=== PATIENT | female | born 1995 | race Caucasian/White ===

== ENCOUNTER 2021-12-04 13:56 | Emergency (ER) | payer BC ==
[2021-12-04] MEDS ORDERED: Lactated Ringers 1,000 ML IV STA (14:05)
[2021-12-04] MEDS ORDERED: LORazepam 2 MG/ML SDV IVPUSH STA (14:05)
[2021-12-04 15:02] LABS: ACETAMINOPHEN <2.0 ug/mL; BLOOD UREA NITROGEN,BUN 6 mg/dL (7.0-18.0); CARBON DIOXIDE,CO2 17.7 mmol/L (21.0-32.0); CHLORIDE,CL 88 mmol/L (98-107); GLUCOSE RANDOM 164 mg/dL (74-106); POTASSIUM,K 3.1 mmol/L (3.5-5.1); SODIUM,NA 125 mmol/L (136-145)
[2021-12-04 15:09] LABS: ESTIMATED GFR 103 mL/min (>60)
[2021-12-04] MEDS ORDERED: Sodium Chloride 0.9% 1,000 ML IV SCH (15:15)
[2021-12-04] MEDS ORDERED: Magnesium Sulfate/Water 2 GM in Premix Bag 1 BAG IV ONE (15:16)
[2021-12-04] MEDS ORDERED: Potassium Chloride 10% 20 MEQ/15 ML Soln 30 ML UD Cup PO ONE (15:29)
== END 2021-12-04 16:13 | disposition critical access hospital (66) ==
LOC: MW.ED 13:56
DX: E87.1 Hypo-osmolality and hyponatremia (principal); E87.6 Hypokalemia; E83.42 Hypomagnesemia; E87.8 Other disorders of electrolyte and fluid balance, not elsewhere classified; Z20.822 Contact with and (suspected) exposure to COVID-19
CPT/HCPCS: 36415; 71045; 80053; 80143; 80179; 80307; 82550; 82728; 83550; 83735; 85025; 87635; 96361; 96374; 99283; J2060; J7120; 99285; U0002

== ENCOUNTER 2022-04-07 20:13 | Emergency (ER) | payer BC ==
[2022-04-07] MEDS ORDERED: Sodium Chloride 0.9% 2.5 ML Syringe FLUSH PRN (20:31)
[2022-04-07] MEDS ORDERED: Sodium Chloride 0.9% 10 ML Syringe FLUSH PRN (20:31)
[2022-04-07 21:39] LABS: POTASSIUM,K 3.3 mmol/L (3.5-5.1)
[2022-04-07] MEDS ORDERED: Magnesium Chloride 64 MG Tab.ER PO STA (21:48)
[2022-04-07] MEDS ORDERED: NS + KCl 20mEq/L 1,000 ML IV SCH (22:00)
[2022-04-07] MEDS ORDERED: Magnesium Oxide 400 MG Tab PO ONE (22:07)
[2022-04-07] MEDS ORDERED: Magnesium Oxide 400 MG Tab ONE (22:08)
== END 2022-04-07 22:12 | disposition home or self-care (01) ==
LOC: MW.ED 20:13
DX: E83.42 Hypomagnesemia (principal); E87.8 Other disorders of electrolyte and fluid balance, not elsewhere classified; R10.11 Right upper quadrant pain
CPT/HCPCS: 36415; 80053; 80305; 81001; 83735; 84443; 84703; 85025; 93005; 99284; A9270

== ENCOUNTER 2024-06-05 10:37 | Emergency (ER) | payer BC ==
[2024-06-05] MEDS ORDERED: Sodium Chloride 0.9% 10 ML Syringe FLUSH PRN (10:49)
[2024-06-05] MEDS ORDERED: Sodium Chloride 0.9% 2.5 ML Syringe FLUSH PRN (10:49)
[2024-06-05] MEDS: Sodium Chloride 0.9% 1,000 ML IV STA (14:25)
[2024-06-05] MEDS: diphenhydrAMINE 50 MG Cap PO ONE (14:25)
[2024-06-05] MEDS: Famotidine 20 MG/2 ML SDV IVPUSH ONE (14:25)
[2024-06-05] MEDS: methylPREDNISolone Sodium Succinate 125 MG/2 ML SDV IVPUSH ONE (14:25)
== END 2024-06-05 11:00 | disposition left against medical advice (07) ==
LOC: MW.ED 10:37
DX: R09.A2 Foreign body sensation, throat (principal); R45.1 Restlessness and agitation; F17.210 Nicotine dependence, cigarettes, uncomplicated; Z79.52 Long term (current) use of systemic steroids; Z75.8 Other problems related to medical facilities and other health care
CPT/HCPCS: 99284